=== PATIENT | male | born 1990 | race Caucasian/White ===

== ENCOUNTER 2018-09-20 19:00 | Emergency (ER) | payer BC ==
[2018-09-20 19:23] VITALS: BP 155/88
--- NOTE | 2018-09-20 20:25 | UC ---
Lower Extremity/Ankle HPI - HPI Summary HPI Summary: 27-year-old male comes in with a chief complaint of left ankle pain. Started today wasn't quite sure how he injured it. The pains on the dorsum of the foot into the ankle and also the lateral aspect. Pain is worse with movement of the ankle and also any weightbearing. Reports that he's injured this ankle many times in the past. Ice elevation anti-inflammatories to help with the pain some. - History of Current Complaint Chief Complaint: UCLowerExtremity Stated Complaint: ANKLE INJURY Time Seen by Provider: 09/20/18 19:09 Pain Intensity: 5 - Allergies/Home Medications Allergies/Adverse Reactions: Allergies Allergy/AdvReac Type Severity Reaction Status Date / Time No Known Allergies Allergy Verified 09/20/18 19:23 Home Medications: Home Medications Acetaminophen TAB* [Tylenol TAB*] 1,500 mg PO Q6H PRN 09/20/18 [History Confirmed 09/20/18] PMH/Surg Hx/FS Hx/Imm Hx Previously Healthy: Yes - Surgical History Surgical History: None - Family History Known Family History: Positive: Non-Contributory Family History: NON CONTRIBUTORY - Social History Alcohol Use: Rare Substance Use Type: None Smoking Status (MU): Never Smoked Tobacco Type: Smokeless Tobacco Review of Systems All Other Systems Reviewed And Are Negative: Yes Constitutional: Positive: Negative Skin: Positive: Negative Eyes: Positive: Negative ENT: Positive: Negative Respiratory: Positive: Negative Cardiovascular: Positive: Negative Gastrointestinal: Positive: Negative Motor: Positive: Negative Neurovascular: Positive: Negative Musculoskeletal: Positive: Other: - SEE HPI Neurological: Positive: Negative Psychological: Positive: Negative Is Patient Immunocompromised?: No Physical Exam Triage Information Reviewed: Yes Appearance: Well-Appearing, No Pain Distress, Well-Nourished Vital Signs: Initial Vital Signs Temp 97.8 F 09/20/18 19:19 Pulse 110 09/20/18 19:19 Resp 16 09/20/18 19:19 BP 155/88 09/20/18 19:19 Pulse Ox 97 09/20/18 19:19 Vital Signs Reviewed: Yes Eye Exam: Normal Eyes: Positive: Conjunctiva Clear Neck exam: Normal Neck: Positive: Supple Respiratory: Positive: No respiratory distress Musculoskeletal: Positive: Other: - Left ankle is tender to palpation on the dorsum of the ankle extending into the dorsum of the foot and also on the lateral anterior aspect of the ankle extending into the lateral aspect of the foot. Normal pulses normal capillary refill no sensation deficit. There is some swelling in this area. Achilles tendon is intact. Neurological Exam: Normal Neurological: Positive: Alert, Muscle Tone Normal Psychological Exam: Normal Psychological: Positive: Age Appropriate Behavior Skin Exam: Normal Lower Extremity Course/Dx - Course Course Of Treatment: I discussed the x-rays with the patient. I do not see any acute fracture radiologist reading is pending. Patient was placed in an Blue wrap and a gel splint is neurovascularly intact after placement of the Blue splint by nursing. Also given crutches. Plan is ice elevation anti- inflammatories and follow-up with orthopedics it is not completely improved. - Differential Dx/Diagnosis Provider Diagnosis: Left ankle sprain Discharge - Sign-Out/Discharge Documenting (check all that apply): Patient Departure All imaging exams completed and their final reports reviewed: No - Discharge Plan Condition: Stable Disposition: HOME Prescriptions: HYDROcodone/ACETAMIN 5-325 MG* [[place] 5-325 TAB*] 1 tab PO Q4H PRN #15 tab MDD 6 PRN Reason: Pain Patient Education Materials: Ankle Sprain (ED), Crutch Instructions (ED) Forms: *Work Release Referrals: Mary Silva MD [Medical Doctor] - Additional Instructions: FOLLOW UP WITH ORTHOPEDICS IF NOT COMPLETELY IMPROVED. GET RECHECKED FOR ANY WORSENING OF YOUR CONDITION OR QUESTIONS OR CONCERNS. - Billing Disposition and Condition Condition: STABLE Disposition: Home
--- NOTE | 2018-09-21 14:42 | UC ---
- Progress Note Progress Note: OFFICIAL RADIOLOGY REPORT REVIEWED. No evidence for fracture about the LEFT ankle or foot. No acute radiographic abnormality. NO CHANGE IN MGMT. Course/Dx - Diagnoses Provider Diagnoses: Left ankle sprain Discharge - Sign-Out/Discharge Documenting (check all that apply): Post-Discharge Follow Up All imaging exams completed and their final reports reviewed: Yes - Discharge Plan Condition: Stable Disposition: HOME Prescriptions: HYDROcodone/ACETAMIN 5-325 MG* [[place] 5-325 TAB*] 1 tab PO Q4H PRN #15 tab MDD 6 PRN Reason: Pain Patient Education Materials: Ankle Sprain (ED), Crutch Instructions (ED) Forms: *Work Release Referrals: Mary Silva MD [Medical Doctor] - Additional Instructions: FOLLOW UP WITH ORTHOPEDICS IF NOT COMPLETELY IMPROVED. GET RECHECKED FOR ANY WORSENING OF YOUR CONDITION OR QUESTIONS OR CONCERNS. - Billing Disposition and Condition Condition: STABLE Disposition: Home
== END 2018-09-20 20:50 | disposition home or self-care (01) ==
LOC: UCEAST 19:00
DX: S93.402A Sprain of unspecified ligament of left ankle, initial encounter (principal); X58.XXXA Exposure to other specified factors, initial encounter; Y92.9 Unspecified place or not applicable
CPT/HCPCS: 99213; G0463

== ENCOUNTER 2018-09-22 14:10 | Emergency (ER) | payer BC ==
--- NOTE | 2018-09-22 14:33 | ED ---
Lower Extremity - HPI Summary HPI Summary: Patient is a 27 y/o M presenting to ED with complaints of left ankle pain onsetting a few days ago after rolling it inward. Pain is mostly at left side of the ankle. Patient has gone to [facility], x-ray of foot and ankle were negative. He claims that he was told to come to ED if pain persisted. Patient reports that he has not been able to bear weight on ankle. He has been keeping the ankle iced and elevated. 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 He wants to get MRI. On triage, pain is rated 5/10, nothing is noted to aggravate/alleviate Sx. Home medications and allergies are reviewed. - History of Current Complaint Chief Complaint: EDExtremityLower Stated Complaint: LEFT FOOT PAIN Time Seen by Provider: 09/22/18 14:18 Hx Obtained From: Patient Mechanism Of Injury: Other - rolled ankle inward Onset of Pain: Immediate, Days, Prior to Arrival Onset/Duration: Days Severity Currently: Moderate - 5/10 Pain Intensity: 5 Pain Scale Used: 0-10 Numeric - 5/10 Timing: Constant, Lasting Days Location: Is Discrete @ - left ankle, left-side Associated Signs And Symptoms: Positive: Negative Aggravating Factor(s): Weight Bearing Alleviating Factor(s): Nothing - Allergies/Home Medications Allergies/Adverse Reactions: Allergies Allergy/AdvReac Type Severity Reaction Status Date / Time No Known Allergies Allergy Verified 09/22/18 14:16 PMH/Surg Hx/FS Hx/Imm Hx Musculoskeletal History: Denies: Hx Rheumatoid Arthritis, Hx Osteoporosis Sensory History: Denies: Hx Legally Blind, Hx Deafness Opthamlomology History: Denies: Hx Legally Blind EENT History: Denies: Hx Deafness Infectious Disease History: No Infectious Disease History: Denies: History Other Infectious Disease, Traveled Outside the [place] in Last 30 Days - Family History Known Family History: Negative: Hypertension, Diabetes - Social History Alcohol Use: Rare Substance Use Type: Reports: None Smoking Status (MU): Never Smoked Tobacco Type: Smokeless Tobacco Review of Systems Negative: Fever - on vitals, temp is 97 F Musculoskeletal: Other - POSITIVE - LEFT ANKLE PAIN All Other Systems Reviewed And Are Negative: Yes Physical Exam - Summary Physical Exam Summary: VITAL SIGNS: Reviewed. GENERAL: Patient is a well-developed and nourished male who is lying comfortable in the stretcher. Patient is not in any acute respiratory distress. HEAD AND FACE: No signs of trauma. No ecchymosis, hematomas or skull depressions. No sinus tenderness. EYES: PERRLA, EOMI x 2, No injected conjunctiva, no nystagmus. EARS: Hearing grossly intact. Ear canals and tympanic membranes are within normal limits. MOUTH: Oropharynx within normal limits. NECK: Supple, trachea is midline, no adenopathy, no JVD, no carotid bruit, no c- spine tenderness, neck with full ROM. CHEST: Symmetric, no tenderness at palpation LUNGS: Clear to auscultation bilaterally. No wheezing or crackles. CVS: Regular rate and rhythm, S1 and S2 present, no murmurs or gallops appreciated. ABDOMEN: Soft, non-tender. No signs of distention. No rebound no guarding, and no masses palpated. Bowel sounds are normal. EXTREMITIES: FROM in all major joints, no edema, no cyanosis or clubbing. Tenderness of left ankle, left foot at left medial malleolus NEURO: Alert and oriented x 3. No acute neurological deficits. Speech is normal and follows commands. SKIN: Dry and warm Triage Information Reviewed: Yes Vital Signs On Initial Exam: Initial Vitals Temp Pulse Resp BP Pulse Ox 97.0 F 105 16 173/102 97 09/22/18 14:12 09/22/18 14:12 09/22/18 14:12 09/22/18 14:12 09/22/18 14:12 Vital Signs Reviewed: Yes Diagnostics - Vital Signs Vital Signs Temp Pulse Resp BP Pulse Ox 09/22/18 14:12 97.0 F 105 16 173/102 97 - Laboratory Lab Statement: Any lab studies that have been ordered have been reviewed, and results considered in the medical decision making process. - CT LEFT LOWER EXTREMITY CT Interpretation Completed By: Radiologist Summary of CT Findings: IMPRESSION: 1. NO EVIDENCE FOR ACUTE FRACTURE. 2. EVIDENCE OF OLD AN HEALED FRACTURE OF THE DISTAL TIBIA INVOLVING THE POSTERIOR. 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 3. 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 4. IF THE PATIENT'S SYMPTOMS PERSIST RECOMMEND FOLLOW-UP MR IMAGING. THIS REPORT WAS REVIEWED BY ED PHYSICIAN. Re-Evaluation - Re-Evaluation First Eval Re-Evaluation Time: 15:53 Comment: At this point I discussed the findings and test results with the patient and the need to follow with orthopedics. The patient says and agrees. Patient is hemodynamically stable. Patient will continue to take his pain medications. Patient has no further questions and all his concerns were answered and satisfaction. Lower Extremity Course/Dx - Course Assessment/Plan: Patient is a 27 y/o M presenting to ED with complaints of left ankle pain onsetting a few days ago after rolling it inward. Pain is mostly at left side of the ankle. Patient has gone to [facility], x-ray of foot and ankle were negative. He claims that he was told to come to ED if pain persisted. Patient reports that he has not been able to bear weight on ankle. He has been keeping the ankle iced and elevated. 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 He wants to get MRI. CT of the left ankle and left foot impression: No evidence for acute fracture. Evidence of an old healed fracture of the distal tibia involving the posterior malleolus chronic injury of the tibiofibular syndesmosis. Bony exostosis arising from the medial cuneiform bone suggestive of or to sarcoma. If symptoms continue the patient should follow-up with an MRI. At this point I discussed the findings and test results with the patient and the need to follow with orthopedics. The patient says and agrees. Patient is hemodynamically stable. Patient will continue to take his pain medications. Patient has no further questions and all his concerns were answered and satisfaction. - Diagnoses Differential Diagnosis/HQI/PQRI: Positive: Bursitis, Cellulitis, Contusion, Dislocation, Fracture (Closed), Sprain, Strain Provider Diagnoses: Ankle pain, Foot pain Discharge - Sign-Out/Discharge Documenting (check all that apply): Patient Departure - DISCHARGE Patient Received Moderate/Deep Sedation with Procedure: No - NO PROCEDURES DONE - Discharge Plan Condition: Stable Disposition: HOME Patient Education Materials: Leg Pain (ED) Referrals: Oumar Pete MD [Medical Doctor] - 3 Days Care [facility] [Outside] - 3 Days Additional Instructions: RETURN TO EMERGENCY DEPARTMENT WITH ANY NEW OR WORSENING SYMPTOMS. FOLLOW UP WITH PRIMARY CARE PHYSICIAN AND ORTHOPEDICS WITHIN THREE DAYS. - Billing Disposition and Condition Condition: STABLE Disposition: Home - Attestation Statements Document Initiated by Mariaelena: Yes Documenting Scribe: SANDY GANT Provider For Whom Mariaelena is Documenting (Include Credential): CRISTIANA CLINTON MD Scribe Attestation: ISANDY , scribed for CRISTIANA CLINTON MD on 09/23/18 at 1316. Scribe Documentation Reviewed: Yes Provider Attestation: The documentation as recorded by the SANDY hagrrove accurately reflects the service I personally performed and the decisions made by me, CRISTIANA CLINTON MD Status of Scribe Document: Viewed
[2018-09-22 16:02] VITALS: BP 0/0
== END 2018-09-22 16:01 | disposition home or self-care (01) ==
LOC: ED 14:10
DX: M25.572 Pain in left ankle and joints of left foot (principal)
CPT/HCPCS: 99282